=== PATIENT | female | born 1975 | race Caucasian/White ===

== ENCOUNTER 2016-07-31 12:34 | Emergency (ER) | payer BC ==
[2016-07-31 13:01] VITALS: TEMP 97.3
--- NOTE | 2016-07-31 13:36 | DI ---
XR CXR 2VW PA/LAT,07/31/2016 12:54 PM: Clinical History: Left-sided chest pain following a needling procedure. Previous Exam: February 11, 2016 Findings: PA inspiration and expiration views are obtained as well as a lateral view of the chest, and demonstr ates a left-sided pneumothorax measuring approximately 25%. The cardiomediastinum and bony thorax are unremarkable. Impression: 25% left apical pneumothorax.
[2016-07-31] MEDS ORDERED: MIDAZOLAM 5 MG/1 ML ONE (14:26)
[2016-07-31] MEDS ORDERED: fentaNYL Inj 100 MCG/2 ML VIAL ONE (14:26)
[2016-07-31] MEDS ORDERED: LIDOCAINE HCL 1%/EPI 1:100,000 - 20 ML VIAL ONE (14:37)
[2016-07-31] MEDS ORDERED: ONDANSETRON 4 MG/2 ML VIAL ONE (14:47)
[2016-07-31] MEDS ORDERED: fentaNYL Inj 100 MCG/2 ML VIAL IVP ONE (14:49)
[2016-07-31] MEDS ORDERED: PROPOFOL 10 MG/1 ML (200 MG/20 ML) VIAL IV ONE (14:49)
[2016-07-31] MEDS ORDERED: MIDAZOLAM 5 MG/1 ML IVP ONE (14:49)
[2016-07-31] MEDS ORDERED: LIDOCAINE HCL 1%/EPI 1:100,000 - 20 ML VIAL SUBCUT ONE (14:49)
[2016-07-31] MEDS ORDERED: ONDANSETRON 4 MG/2 ML VIAL IVP ONE (14:50)
[2016-07-31] MEDS ORDERED: LACTATED RINGERS 1000 ML PRIMARY IV SCH (15:00)
--- NOTE | 2016-07-31 15:03 | GEN.OPNOTE ---
Operative Note Surgery Date: 07/31/16 Preoperative Diagnosis: Left pneumothorax Postoperative Diagnosis: Left pneumothorax Procedure: Left thoracentesis for pneumothorax Surgeon: Jose Raul Vera MD Anesthesia Provider: Misha Marques CRNA Anesthesia Type: Local, MAC Estimated Blood Loss (mL): 0 Indications: Patient dry needling and then sustained a pneumothorax the left alegre feels short of breath and pain with breathing Operative Summary: At the informed written consent the patient was prepped draped sterile fashion. Patient was identified prior with asked the patient name and procedure done. Also patient's name band was viewed. After the patient had adequate anesthesia and was prepped I infiltrated 2% lidocaine with epinephrine for local anesthetic. Total of 5 mL was used. I made a small incision was 1 place a chest tube. This is approximately the third to fourth intercostal space. I then used a thoracic vent to place a tube into the chest. I then had the event up to suction. Postoperative chest x-ray showed lung was reexpanded. The event was then secured in place. Patient will be discharged in stable condition
--- NOTE | 2016-07-31 15:09 | DI ---
XR CXR 1VW,07/31/2016 2:41 PM: Clinical History: Left chest tube placement. Previous Exam: The same date 2 hours prior. Findings: A single frontal radiograph of the chest is obtained, and demonstrates a new pigtail catheter in good position. There has been reexpansion of the left lung. There is some mild subsegmental atelectasis i n the left lung base not seen on the prior exam. Overlying EKG leads are seen. The cardiomediastinum and bony thorax are unremarkable. Impression: New placement of a left pigtail catheter with reexpansion of the left lung.
[2016-07-31 17:27] VITALS: RESP 20
[2016-07-31] MEDS ORDERED: MEPERIDINE HCL/PF 100 MG/1 ML INJECTION IM ONE (18:11)
--- NOTE | 2016-07-31 18:25 | DI ---
XR CXR 2VW PA/LAT,07/31/2016 5:28 PM: Clinical History: Left pneumothorax. Previous Exam: July 31, 2016 Findings: PA and lateral views of the chest are obtained, and demonstrate a stable pigtail catheter and fully i nflated lungs bilaterally. The cardiomediastinum and bony thorax are unremarkable. Impression: Status post resolution of a left pneumothorax
--- NOTE | 2016-07-31 19:20 | PDOC ---
Chest Pain HPI - General Chief Complaint: General Medical Stated Complaint: BACK HURTS TO TAKE A DEEP BREATH Date Seen by Provider: 07/31/16 Time Seen by Provider: 12:45 Source: Patient Exam Limitations: POSITIVE: No limitations Treatment Prior to Arrival: REPORTS: None Nurse's Notes Reviewed & Considered: Yes - History of Present Illness Initial Comments: The patient is a 40-year-old female. She has a history of chronic back pain and was undergoing a "dry needling" treatment in physical therapy for this problem. The needles were being inserted into the upper left posterior thorax. Patient takes Strattera, Lexapro, Percocet, diazepam and has a Nuva Ring. Has patient was undergoing the treatment, "dry needling" she developed pain in the anterior thorax. She has since had pain, especially with inspiration. 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 No GI or symptoms. No rashes or skin changes. No focal neurologic symptoms. 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 DENIES: Nausea, Vomiting, Diaphoresis, Palpitations, Productive Cough (blood), Productive Cough (sputum), Weakness, Dizziness Modifying Factors: improves with: Other (Worse with deep inspiration) Similar Symptoms Previously: No Recently seen/treated/hospitalized: Yes ("dry needling" as above in physical therapy.) Any Prior Injuries Related to Current Complaint?: No - Patient Home Medications Home Medications: Home Medications Atomoxetine HCl [Strattera] 80 mg PO DAILY cap 12/17/13 Escitalopram Oxalate [Lexapro] 20 mg PO DAILY tab 12/17/13 Oxycodone HCl/Acetaminophen [Oxycodone-Acetaminophen 5-325] 1 tab PO Q4H PRN # 60 tab 04/02/15 Etonogestrel/Ethinyl Estradiol [Nuvaring Vaginal Ring] 1 each VAGINAL MONTHLY # 3 vag ring 06/18/15 Diazepam 10 mg PO PRN PRN #30 tab 05/12/16 - Patient Allergies Allergies/Adverse Reactions: Allergies Allergy/AdvReac Type Severity Reaction Status Date / Time No Known Allergies Allergy Verified 07/31/16 12:45 Past Medical History - heen HEENT History: Denies History Cardiovascular History: Hypotension Respiratory History: Asthma Gastrointestinal History: Other (please comment) Additional Gastrointestinal History: Hx of a cholecystectomy...hx of a "spastic colon" per patient. Genitourinary History: Denies History Endocrine History: Other (please comment) Additional Endocrine History: INSULIN RESISTANCE (NOT A DIABETIC PER PT ). DOES NOT TAKE HER METFORMIN Musculoskeletal History: Back Pain Prosthesis or Implant: No Additional Musculoskeletal History: hx of Lumbar 4-5 Discectomy Neurological History: Migraines, Frequent Headaches Blood Disorders: Denies History Psychiatric History: Depression, Anxiety Disorders History of Sexually Transmitted Diseases: No Female Reproductive History: Denies History LMP: 07/11/2016 Obstetrical History: Denies History Cancer History: Denies History In Past Year Been Physically Harmed or Verbally Threatened: No History of MDRO: No History of Other Communicable Diseases: No Tobacco Use: Never Smoker Alcohol Use: Occasionally How much alcohol do you normally drink a day?: 1 drink daily Substance Use Type: None Previous Surgical History: Yes Type / Date of Surgery: GALLBLADDER. BACK x2. oral surgery Anesthesia Reactions: No Malignant Hyperthermia: No Significant Family History: No pertinent family hx Past Medical History Reviewed: Reviewed - No Changes ROS - Limitations ROS Limitations: No Limitations Constitution: REPORTS: Denies Symptoms Cardiovascular: REPORTS: Denies Cardiac Symptoms Respiratory: REPORTS: Hurts To Breathe, Shortness Of Breath Neurological: REPORTS: Denies Neuro Symptoms Gastrointestinal: REPORTS: Denies GI Symptoms Endocrine: REPORTS: Denies Symptoms Musculoskeletal: REPORTS: Denies MS Symptoms Genitourinary: REPORTS: Denies Symptoms Eyes: REPORTS: Denies Symptoms ENT: REPORTS: Denies Symptoms Skin: REPORTS: Denies Skin Symptoms Lympathic: REPORTS: Denies Lympathic Symptoms Immunologic: POSITIVE: Denies Symptoms Psychiatric: POSITIVE: Denies Psych Symptoms Chest Pain PE - General Appearance General Appearance: REPORTS: Alert, Cooperative, No Acute Distress, No Evidence of Trauma - HEENT HEENT: POSITIVE: Head Inspection Nml, Eyes Inspection Nml, Ears Inspection Nml, Nose Inspection Nml, Oral/Dental Inspect. Nml, Pharynx Inspect. Nml, PERRL, EOMI - Neck Neck: REPORTS: Normal Inspection, No Carotid Bruit - Respiratory Respiratory: REPORTS: No Respiratory Distress, Chest Non-Tender, Decreased Air Movement (Left), See Diagram. DENIES: Breath Sounds Normal (Decreased breath sounds on left), Wheezes, Rales, Rhonchi, Respiratory Distress, Distinct Pain on Movement, Right Arm Pain, Left Arm Pain, Trunk Pain, Splinting - Cardiovascular Cardiovascular: REPORTS: Regular Rate and Rhythm, Heart Sounds Normal, Equal Pulses, Strong Pulses, No Murmur, No Gallop, No Friction Rub, No JVD Peripheral Pulses: Radial (R): 2+, Radial (L): 2+ - Abdomen Abdomen: Soft: (All Quadrants), Normal Bowel Sounds: (All Quadrants), Denies Tenderness: (All Quadrants), No Splenomegaly: (All Quadrants), No Hepatomegaly: (All Quadrants), No Guarding: (All Quadrants), No Rebound: (All Quadrants), No Palpable Pulse: (All Quadrants), No Palpabale Mass: (All Quadrants), No Distention: (All Quadrants), No Rigidity: (All Quadrants) - Skin Skin: REPORTS: Intact, Normal For Race, Warm, Dry, No Rash - Extremities Extremity: Non-Tender: (All Extremities), Normal ROM: (All Extremities), Normal Inspection: (All Extremities) - Neurological / Psychological Neurological: POSITIVE: Oriented X3, 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 - Patient's Progress Pain Medication Addressed: POSITIVE: Yes Re-Examine Time: 13:35 Re-Examine Comment: Diagnosis discussed with the patient and also with Dr. joya did year, surgeon. Dr. Kumar came to the emergency room and placed a Heimlich valve thoracostomy tube; see 's procedure note. Post thoracostomy tube placement showed good reinflation of left lung. Patient feels much better. Patient has Percocet at home which she can take for pain. Status: POSITIVE: Improved, Re-Examined - Consult Consult (If Yes, Name of Consulting MD & Time Called): Yes (, [id number] as above ) Consulting MD will see pt:: POSITIVE: In ED Counseled: POSITIVE: Patient, RE: Radiology Results, RE: DX, RE: Need for F/U Patient Care Time - Estimated PCT Patient Care Time (In Minutes): 40 Vital Signs - Recent Vital Signs Vital Signs: Vital Signs (Last 8 hours) Temp Pulse Resp BP Pulse Ox 07/31/16 18:37 20 94 07/31/16 17:20 74 20 121/86 99 07/31/16 12:35 97.3 F 105 H 16 119/88 98 - VS Reviewed Vital Signs Reviewed: Yes Discharge Clinical Impression: Pneumothorax on left Discharge Disposition: Discharged to Home Condition: Stable Patient Instructions Given at Discharge: Traumatic Pneumothorax (ED), How to Care for Your Chest or Abdominal Catheter (DC) Additional Instructions: Manage chest tube as Dr. Kumar has instructed. Follow-up with Dr. Kumar as he has instructed. Rest. Return here anytime if condition worsens in any way whatsoever. You may take Percocet, which is Zaki been prescribed feel, one every 4 hours as necessary for pain. Follow Up With: JOAN SANZ [STAFF PHYSICIAN] - 08/03/16 SANIYA TORRES [Primary Care Provider] - As Needed (Follow-up with as he has instructed; manage chest tube as he has instructed. Return here anytime if condition worsens in any way. )
== END 2016-07-31 15:20 | disposition home or self-care (01) ==
LOC: ER 12:34
DX: J93.83 Other pneumothorax (principal); M54.89 Other dorsalgia; R07.9 Chest pain, unspecified
CPT/HCPCS: 32551; 71010; 71020; 96374; 96375; 99283; 99284; J2704; J3010; J2175; J2250; J2405

== ENCOUNTER 2016-08-03 02:45 | Emergency (ER) | payer BC ==
[2016-08-03] MEDS ORDERED: oxyCODONE IR Tab 5 MG TAB PO ONE (03:24)
[2016-08-03] MEDS ORDERED: LORazepam 1 MG TABLET PO ONE (03:25)
[2016-08-03] MEDS ORDERED: Ondansetron ODT Tab 8 MG TAB PO ONE (03:27)
--- NOTE | 2016-08-03 03:31 | PDOC ---
Gen Adult / Medical Screen HPI - General Chief Complaint: General Medical Stated Complaint: BURNING IN LEFT CHEST BY CHEST TUBE Date Seen by Provider: 08/03/16 Time Seen by Provider: 03:25 - History of Present Illness Initial Comments: Patient is a very nice 40-year-old woman who is being seen by physical therapy for some dry needling and ended up with a pneumothorax. She had a thoracic vent placed by general surgery and is scheduled to see general surgery in the morning for consideration of removing this. She's been having discomfort and some burning around the side of her vent this evening and is quite anxious about it. She has not had any fever or chills she does not have significant shortness of breath just some sensation of burning around the side of the incision and also she has some pain there when she moves her arm. - Patient Home Medications Home Medications: Home Medications Atomoxetine HCl [Strattera] 80 mg PO DAILY cap 12/17/13 Escitalopram Oxalate [Lexapro] 20 mg PO DAILY tab 12/17/13 Oxycodone HCl/Acetaminophen [Oxycodone-Acetaminophen 5-325] 1 tab PO Q4H PRN # 60 tab 04/02/15 Etonogestrel/Ethinyl Estradiol [Nuvaring Vaginal Ring] 1 each VAGINAL MONTHLY # 3 vag ring 06/18/15 Diazepam 10 mg PO PRN PRN #30 tab 05/12/16 - Patient Allergies Allergies/Adverse Reactions: Allergies Allergy/AdvReac Type Severity Reaction Status Date / Time No Known Allergies Allergy Verified 08/03/16 03:42 Past Medical History - heen HEENT History: Denies History Cardiovascular History: Hypotension Respiratory History: Asthma Gastrointestinal History: Other (please comment) Additional Gastrointestinal History: Hx of a cholecystectomy...hx of a "spastic colon" per patient. Genitourinary History: Denies History Endocrine History: Other (please comment) Additional Endocrine History: INSULIN RESISTANCE (NOT A DIABETIC PER PT ). DOES NOT TAKE HER METFORMIN Musculoskeletal History: Back Pain Prosthesis or Implant: No Additional Musculoskeletal History: hx of Lumbar 4-5 Discectomy Neurological History: Migraines, Frequent Headaches Blood Disorders: Denies History Psychiatric History: Depression, Anxiety Disorders History of Sexually Transmitted Diseases: No Cancer History: Denies History History of MDRO: No History of Other Communicable Diseases: No Alcohol Use: Occasionally Substance Use Type: None Previous Surgical History: Yes Type / Date of Surgery: GALLBLADDER. BACK x2. oral surgery Anesthesia Reactions: No Malignant Hyperthermia: No Significant Family History: No pertinent family hx Past Medical History Reviewed: Reviewed - No Changes ROS - Limitations ROS Limitations: No Limitations Constitution: REPORTS: Denies Symptoms Cardiovascular: REPORTS: Denies Cardiac Symptoms Neurological: REPORTS: Denies Neuro Symptoms Gen Adult/Medical Screen Exam - General Appearance General Appearance: POSITIVE: Alert, Cooperative, No Acute Distress - HEENT HEENT: POSITIVE: Head Inspection Nml - Neck Neck: POSITIVE: Normal Inspection - Respiratory Respiratory: POSITIVE: No Respiratory Distress, Breath Sounds Normal, Other ( Bilateral breath sounds throughout all lung jain. Her chest wall anteriorly shows no subcutaneous emphysema no signs consistent with inflammation or infection no redness swelling or tenderness) Gen Adlt/Medical Scrn Progress - Patient's Progress MDM / ED Course: This very nice 40-year-old woman seems very stressed out by her situation. I see no physical evidence to problem me to feel that we need any urgent imaging and she has a chest x-ray schedule just prior to her appointment with her general surgeon and I feel that she should keep those appointments. I'm sure this thoracic vent is uncomfortable and is penetrating through her upper pectoralis muscle and this is likely the cause of her chest wall pain when she moves her left upper extremity. She has excellent breath sounds bilaterally by don't feel there is significant risks that she's had return of pneumothorax. She does not have fever or chills and no evidence of infection. I'm going give her a dose of pain medication and some medication for anxiety and see if she feels. I think it very important that she makes her appointment today with her surgeon. Patient Care Time - Estimated PCT Patient Care Time (In Minutes): 35 Vital Signs - Recent Vital Signs Vital Signs: Vital Signs (Last 8 hours) Temp Pulse Resp BP Pulse Ox 08/03/16 02:45 97.6 F 99 18 122/94 97 - VS Reviewed Vital Signs Reviewed: Yes (benign upon exam) Discharge Clinical Impression: Chest wall pain Discharge Disposition: Discharged to Home Condition: Stable Additional Instructions: Follow-up with your general surgery appointment in 4 hours. Return here with any substantial worsening or any other concerns. Follow Up With: SANIYA TORRES [Primary Care Provider] -
[2016-08-03] MEDS ORDERED: Sodium Chloride 0.9% 1,000 ML PRIMARY IV ONE (03:50)
[2016-08-03 04:01] VITALS: RESP 18; TEMP 97.6
== END 2016-08-03 04:15 | disposition home or self-care (01) ==
LOC: ER 02:45
DX: T85.848A Pain due to other internal prosthetic devices, implants and grafts, initial encounter (principal); R07.89 Other chest pain
CPT/HCPCS: 99282 ×2; Q0162

== ENCOUNTER → 2016-08-03 | Outpatient (CLI) | payer BC ==
--- NOTE | 2016-08-03 09:26 | DI ---
XR CXR 1VW,08/03/2016 8:43 AM: Clinical History: Left-sided pneumothorax. Previous Exam: July 31, 2016 Findings: A single frontal radiograph of the chest is obtained, and demonstrate a stable pigtail catheter withi n the left pleural space. There is complete expansion of left lung without evidence of pneumothorax. The cardiomediastinum and bony thorax are unremarkable. Impression: Complete reexpansion of the left lung with a left pleural catheter in stable position.
--- NOTE | 2016-08-03 10:32 | DI ---
XR CXR 1VW,08/03/2016 9:20 AM: Clinical History: Status post removal of a left chest tube. Previous Exam: August 03, 2016 one hour prior. Findings: A single frontal radiograph of the chest is obtained, and demonstrates clear lungs. There is complete expansion of the left lung. Skeletal structures are unremarkable. The heart is also unremarkable. There is no infiltrate nor effusion. Impression: Status post removal of a left pigtail catheter with complete reexpansion of the left lung.
== END ==
LOC: MOB RAD 08:38
PROVIDERS: ATTEND Surgery
DX: J93.9 Pneumothorax, unspecified (principal); Z98.890 Other specified postprocedural states
CPT/HCPCS: 71010

== ENCOUNTER → 2016-09-27 | Outpatient (CLI) | payer BC ==
--- NOTE | 2016-09-27 14:13 | DI ---
History: Joint pain right ankle Comparison: None Findings: No fracture No dislocation No degenerative changes No destructive lesions Nondistressed mortise is normal in alignment. Incidental note is made 2 mm plantar calcaneal osteophyte. Impression: Unremarkable plain film study the ankle
== END ==
LOC: MOB RAD 13:10
DX: M25.571 Pain in right ankle and joints of right foot (principal)
CPT/HCPCS: 73610